=== PATIENT | female | born 1995 ===

== ENCOUNTER 2018-02-14 15:01 | Emergency (ER) | payer BC ==
[2018-02-14 15:17] VITALS: BP 125/82
--- NOTE | 2018-02-14 15:40 | UC ---
Bite Injury/Animal HPI - HPI Summary HPI Summary: bite on the back of her left upper arm by a dog while walking at a park yesterday---no bleeding but does have a bruise ---she did not get contact information regarding the dog or rabies information - History of Current Complaint Chief Complaint: UCBiteInjury Stated Complaint: DOG BITE Time Seen by Provider: 02/14/18 15:11 Hx Obtained From: Patient Hx Last Menstrual Period: one week ago ?: No Pain Intensity: 0 Pain Scale Used: 0-10 Numeric Onset/Duration: Sudden Onset, Lasting Days - 1 Type of Bite: Pet Has Animal Been Immunized?: Unknown Aggravating Factor(s): Nothing Alleviating Factor(s): Nothing Associated Signs And Symptoms: Positive: Erythema - and bruising Hx of Bite: Unprovoked Animal Available for Observation: No Animal Control Notified: Yes - Allergies/Home Medications Allergies/Adverse Reactions: Allergies Allergy/AdvReac Type Severity Reaction Status Date / Time No Known Allergies Allergy Verified 02/14/18 15:18 Home Medications: Home Medications Citalopram TAB* [Celexa TAB*] 15 mg PO DAILY 02/14/18 [History Confirmed ] Norgestimate-Ethinyl Estradiol [Sprintec 28 Day Tablet] 1 tab PO DAILY 02/14/18 [History Confirmed 02/14/18] PMH/Surg Hx/FS Hx/Imm Hx Previously Healthy: No Psychological History: Anxiety - Surgical History Surgical History: Yes Surgery Procedure, Year, and Place: Tonsils. Right knee - Family History Known Family History: Positive: None - Social History Occupation: Unemployed Lives: With Family Alcohol Use: Occasionally Substance Use Type: None Smoking Status (MU): Never Smoked Tobacco - Immunization History Most Recent Tetanus Shot: August 2017 Review of Systems Constitutional: Negative Skin: Bruising - back of left arm Eyes: Negative ENT: Negative Respiratory: Negative Cardiovascular: Negative Gastrointestinal: Negative Genitourinary: Negative Motor: Negative Neurovascular: Negative Musculoskeletal: Negative Neurological: Negative Psychological: Negative Is Patient Immunocompromised?: No All Other Systems Reviewed And Are Negative: Yes Physical Exam Triage Information Reviewed: Yes Appearance: Well-Appearing, No Pain Distress, Well-Nourished Vital Signs: Initial Vital Signs Temp 97.8 F 02/14/18 15:15 Pulse 90 02/14/18 15:15 Resp 18 02/14/18 15:15 BP 125/82 02/14/18 15:15 Pulse Ox 100 02/14/18 15:15 Vital Signs Reviewed: Yes Eye Exam: Normal Eyes: Positive: Conjunctiva Clear ENT Exam: Normal ENT: Positive: Normal ENT inspection, Hearing grossly normal. Negative: Trismus , Muffled voice, Hoarse voice Dental Exam: Normal Neck exam: Normal Neck: Positive: Supple, Nontender Respiratory Exam: Normal Respiratory: Positive: Chest non-tender, No respiratory distress, No accessory muscle use Cardiovascular Exam: Normal Cardiovascular: Positive: RRR, Pulses Normal, Brisk Capillary Refill Musculoskeletal Exam: Normal Musculoskeletal: Positive: Strength Intact, ROM Intact, No Edema Neurological Exam: Normal Neurological: Positive: Alert, Muscle Tone Normal Psychological Exam: Normal Skin Exam: Normal Skin: Positive: Other - erythema with bruising Bite Injury Course/Dx - Course Course Of Treatment: reviewed case with [facility] department--- will hold off on rabies treatment---patient has no open area will not treat with antibiodics, tetanus is up to date-- - Differential Dx/Diagnosis Provider Diagnoses: contusion left upper arm, dog bite Discharge - Sign-Out/Discharge Documenting (check all that apply): Patient Departure All imaging exams completed and their final reports reviewed: No Studies - Discharge Plan Condition: Stable Disposition: HOME Patient Education Materials: Contusion in Adults (ED), Acute Wound Care (ED) Referrals: [facility] [place] [facility] [Outside] [facility] Dept [Outside] - Billing Disposition and Condition Condition: STABLE Disposition: Home
== END 2018-02-14 16:25 | disposition home or self-care (01) ==
LOC: UCEAST 15:01
DX: S40.022A Contusion of left upper arm, initial encounter (principal); F41.9 Anxiety disorder, unspecified; Z79.899 Other long term (current) drug therapy; W54.0XXA Bitten by dog, initial encounter; Y93.01 Activity, walking, marching and hiking; Y92.830 Public park as the place of occurrence of the external cause
CPT/HCPCS: 99201; G0463

== ENCOUNTER 2018-02-24 13:45 | Emergency (ER) | payer BC ==
[2018-02-24 13:56] VITALS: BP 118/74
[2018-02-24] MEDS ORDERED: Rabies VIRUS VACCINE (Imovax)* 2.5 UNIT/ML 1 ML IM ONE (14:01)
[2018-02-24] MEDS ORDERED: Rabies Immune Globulin 10 ML* 150 UNIT/ML VIAL IM ONE ×2 (14:03→14:14)
--- NOTE | 2018-02-24 14:33 | ED ---
Bite Injury/Animal - HPI Summary HPI Summary: 22-year-old female presents for rabies vaccine and immunoglobulin. She was bite by a dog on the on left arm. The health department cannot find the dog so recommend she come here to get the rabies vaccine. States the area has healed over on her arm. No fevers. No rash. Has no allergies to medication. No medical conditions. tetanus was in august. - History of Current Complaint Chief Complaint: UCBiteInjury Stated Complaint: RABIES Time Seen by Provider: 02/24/18 13:59 Hx Last Menstrual Period: 02/12/18 Pain Intensity: 0 - Allergies/Home Medications Allergies/Adverse Reactions: Allergies Allergy/AdvReac Type Severity Reaction Status Date / Time No Known Allergies Allergy Verified 02/24/18 13:56 Home Medications: Home Medications Amphetamine MIXED SALTS TAB* [Adderall TAB*] 25 mg PO DAILY 02/24/18 [History Confirmed 02/24/18] PMH/Surg Hx/FS Hx/Imm Hx Endocrine/Hematology History: Denies: Hx Anticoagulant Therapy Respiratory History: Denies: Hx Asthma - Surgical History Surgery Procedure, Year, and Place: Tonsils. Right knee Infectious Disease History: No Infectious Disease History: Denies: Traveled Outside the [place] in Last 30 Days - Family History Known Family History: Positive: None - Social History Alcohol Use: Occasionally Substance Use Type: Reports: None Smoking Status (MU): Never Smoked Tobacco Review of Systems Negative: Fever Negative: Chest Pain Negative: Shortness Of Breath Positive: Other - scratch dog arm a week ago All Other Systems Reviewed And Are Negative: Yes Physical Exam Triage Information Reviewed: Yes Vital Signs On Initial Exam: Initial Vitals Temp Pulse Resp BP Pulse Ox 98 F 100 17 118/74 100 02/24/18 13:53 02/24/18 13:53 02/24/18 13:53 02/24/18 13:53 02/24/18 13:53 Vital Signs Reviewed: Yes Appearance: Positive: Well-Appearing Skin: Positive: Warm, Dry, Other - superficial 1/2cm scratch to left arm that is healed over Eyes: Positive: Normal, Conjunctiva Clear ENT: Positive: Pharynx normal Respiratory/Lung Sounds: Positive: Clear to Auscultation, Breath Sounds Present Cardiovascular: Positive: Normal, RRR Musculoskeletal: Positive: Normal Neurological: Positive: Normal Psychiatric: Positive: Normal Diagnostics - Vital Signs Vital Signs Temp Pulse Resp BP Pulse Ox 02/24/18 13:53 98 F 100 17 118/74 100 - Laboratory Lab Statement: Any lab studies that have been ordered have been reviewed, and results considered in the medical decision making process. Bite Injury Course/Dx - Course Course Of Treatment: 22-year-old female presents for rabies vaccine and immunoglobulin. She was bite by a dog on the on left arm. The health department cannot find the dog so recommend she come here to get the rabies vaccine. States the area has healed over on her arm. No fevers. No rash. Has no allergies to medication. No medical conditions. tetanus was in august. On exam has 1/2 centimeter superficial scratch that is almost healed over on left arm. placed 1ml immunoglobulin in wound. rest of immunoglobulin and vaccine given. patient knows to follow up with health department. patient understand and agrees with plan. - Diagnoses Differential Diagnosis/HQI/PQRI: Positive: Puncture, Rabies Exposure, Superficial Infection Provider Diagnosis: Encounter for prophylactic rabies immune globin Discharge - Sign-Out/Discharge Documenting (check all that apply): Patient Departure All imaging exams completed and their final reports reviewed: No Studies - Discharge Plan Condition: Good Disposition: HOME Patient Education Materials: Rabies Vaccine (ED) Referrals: No Primary Care Phys,NOPCP [Primary Care Provider] - Additional Instructions: Follow up with anat department on days 3,7,14 Return to ED if develop any new or worsening symptoms - Billing Disposition and Condition Condition: GOOD Disposition: Home
== END 2018-02-24 14:50 | disposition home or self-care (01) ==
LOC: UCEAST 13:45
DX: S40.812D Abrasion of left upper arm, subsequent encounter (principal); W54.0XXD Bitten by dog, subsequent encounter; Z23 Encounter for immunization
CPT/HCPCS: 90375; 90471; 96372; 99211; G0463